=== PATIENT | female | born 1995 | race Caucasian/White ===

== ENCOUNTER → 2017-11-21 | Outpatient (CLI) | payer OTHER ==
[2017-11-21 18:11] LABS: IMMUNOGLOBULIN E 31.7 IU/ML (<100)
[2017-11-25 15:18] LABS: IMMUNOGLOBULIN E, TOTAL 36 IU/mL (0-100)
== END ==
LOC: M SMT 14:54
DX: Z91.040 Latex allergy status (principal)
CPT/HCPCS: 82785